=== PATIENT | male | born 1990 | race Asian ===

== ENCOUNTER 2019-02-05 07:08 | Inpatient (IN) | payer BC ==
[~2019-02-05] VITALS: Ht 157.5 cm; Wt 52.6 kg
[2019-02-05 09:06] LABS: BASOPHIL % 0.5 % (0-2); PLATELET COUNT 270 x10^3mcL (130-400); RED CELL DISTRIBUTION WIDTH 12.5 % (11.5-14.5)
[2019-02-05 09:32] LABS: CALCIUM 8.2 mg/dL (8.5-10.1); CARBON DIOXIDE 25.8 mmol/L (21-32); CHLORIDE SERUM 105 mmol/L (98-107); CREATININE SERUM 1.3 mg/dL (0.7-1.3); GFR1 > 60 mL/min; GLUCOSE SERUM 109 mg/dL (74-106); POTASSIUM SERUM 3.4 mmol/L (3.5-5.1); SODIUM SERUM 140 mmol/L (136-145)
[2019-02-05 09:37] LABS: ALBUMIN 3.3 g/dL (3.4-5.0); ALKALINE PHOSPHATASE 57 U/L (46-116); ALT/SGPT 30 U/L (16-63); AST/SGOT 23 U/L (15-37); BILIRUBIN TOTAL 1.2 mg/dL (0.20-1.00); TOTAL PROTEIN, SERUM 6.5 g/dL (6.4-8.2)
[2019-02-05 12:09] LABS: MAGNESIUM 1.9 mg/dL (1.8-2.4); PHOSPHOROUS 3.7 mg/dL (2.5-4.9)
[2019-02-05 12:21] VITALS: BP 118/62
[2019-02-05 13:20] VITALS: BP 107/61
[2019-02-05 17:48] VITALS: BP 94/44
[2019-02-05 20:42] VITALS: BP 85/52
[2019-02-06 05:30] VITALS: BP 97/45
[2019-02-06 06:30] LABS: BASOPHIL % 0.2 % (0-2); PLATELET COUNT 254 x10^3mcL (130-400); RED CELL DISTRIBUTION WIDTH 12.1 % (11.5-14.5)
[2019-02-06 06:40] LABS: CALCIUM 8.4 mg/dL (8.5-10.1); CARBON DIOXIDE 26.6 mmol/L (21-32); CHLORIDE SERUM 109 mmol/L (98-107); CREATININE SERUM 1.1 mg/dL (0.7-1.3); GFR1 > 60 mL/min; GLUCOSE SERUM 104 mg/dL (74-106); POTASSIUM SERUM 4.2 mmol/L (3.5-5.1); SODIUM SERUM 143 mmol/L (136-145)
[2019-02-06 09:12] VITALS: BP 90/47
[2019-02-06 13:42] VITALS: Ht 157.5 cm; Wt 52.6 kg
[2019-02-06 17:38] VITALS: BP 98/48
[2019-02-06 19:56] VITALS: BP 109/64
[2019-02-07 05:35] VITALS: BP 93/54
[2019-02-07 06:43] LABS: BASOPHIL % 0.5 % (0-2); PLATELET COUNT 273 x10^3mcL (130-400); RED CELL DISTRIBUTION WIDTH 12.6 % (11.5-14.5)
[2019-02-07 06:55] LABS: CALCIUM 8.2 mg/dL (8.5-10.1); CHLORIDE SERUM 109 mmol/L (98-107); GFR1 > 60 mL/min; GLUCOSE SERUM 124 mg/dL (74-106); POTASSIUM SERUM 3.6 mmol/L (3.5-5.1); SODIUM SERUM 143 mmol/L (136-145)
[2019-02-07 09:14] VITALS: BP 140/70
[2019-02-07 18:23] VITALS: BP 116/68
[2019-02-07 20:31] VITALS: BP 113/72
[2019-02-08 05:21] VITALS: BP 110/64
[2019-02-08 06:23] LABS: BASOPHIL % 0.6 % (0-2); PLATELET COUNT 321 x10^3mcL (130-400); RED CELL DISTRIBUTION WIDTH 12.2 % (11.5-14.5)
[2019-02-08 06:51] LABS: CALCIUM 8.5 mg/dL (8.5-10.1); CARBON DIOXIDE 27.3 mmol/L (21-32); CHLORIDE SERUM 107 mmol/L (98-107); CREATININE SERUM 1.2 mg/dL (0.7-1.3); GFR1 > 60 mL/min; GLUCOSE SERUM 113 mg/dL (74-106); POTASSIUM SERUM 3.8 mmol/L (3.5-5.1); SODIUM SERUM 141 mmol/L (136-145)
[2019-02-08 09:06] VITALS: BP 104/62
[2019-02-08] MEDS ORDERED: BACTRIM DS1 TAB PO (09:14)
[2019-02-08] MEDS ORDERED: CLINDAMYCIN HC300 MG PO (09:15)
[2019-02-08] MEDS ORDERED: IBUPROFEN400 MG PO (09:15)
[2019-02-08] MEDS ORDERED: BACO TOP (09:18)
[2019-02-08 10:22] VITALS: BP 104/62
== END 2019-02-08 11:40 | disposition home or self-care (01) | DRG 603 ==
LOC: ED 07:08 → MU 11:28
PROVIDERS: Emergency Medicine; Internal Medicine; ADMIT General Practice
DX: L03.115 Cellulitis of right lower limb (principal); E87.6 Hypokalemia; F12.10 Cannabis abuse, uncomplicated; D72.829 Elevated white blood cell count, unspecified; F17.210 Nicotine dependence, cigarettes, uncomplicated
CPT/HCPCS: 90658; 99406; G0378; J0696; J3370; J7030